=== PATIENT | male | born 1965 | race Caucasian/White ===

== ENCOUNTER → 2018-08-05 | Outpatient (CLI) | payer BC ==
[~2018-08-05] MED LIST: IOPAMIDOL 370 MG/ML 200 ML INFUS..BTL INJ ONE; SODIUM CHLORIDE 0.9% 50ML 50 ML ONE
[2018-08-05 14:50] LABS: BLOOD UREA NITROGEN 20 mg/dL (7-26); BUN/CREATININE RATIO 19 (6-25); CREATININE, SERUM 1.05 mg/dL (0.72-1.25); EST GLOMERULAR FILTRATION RATE > 60 ML/MIN (60-)
--- NOTE | 2018-08-05 15:39 | Diagnostic Imaging Report ---
EXAM: CT Chest WITH contrast (PE Protocol) INDICATION: ^SOB ON EXERTION/DIZZINESS/TACHCARDI COMPARISON: None TECHNIQUE: Chest was scanned utilizing a multidetector helical scanner from the lung apex through the level of the diaphragm after administration of IV contrast. Thin section reconstructions were obtained with special concentration on the pulmonary arteries. Coronal and sagittal reformations were obtained. Dose modulation, iterative reconstruction, and/or weight based adjustment of the mA/kV was utilized to reduce the radiation dose to as low as reasonably achievable. Pulmonary embolism protocol was performed. IV CONTRAST: 100 mL of Isovue-370 COMPLICATIONS: None RADIATION DOSE: Total DLP: 255.08 mGy*cm Estimated effective dose: (DLP x 0.014 x size factor) mSv CTDIvol has been reviewed. It is below the limits set by the Radiation Protocol Committee (RPC). FINDINGS: LINES/ TUBES: None. LUNGS AND AIRWAYS: No filling defect is identified within the pulmonary arteries to the segmental level. Bibasilar atelectasis/scarring. Airways are normal. PLEURA: The pleural spaces are clear. HEART AND MEDIASTINUM: The visualized thyroid gland is normal. No mediastinal, hilar or axillary lymphadenopathy. The heart is normal in size.. Trace pericardial fluid. . Main pulmonary artery measures 2.3 cm in diameter and the ascending aorta measures 3.3 cm. UPPER ABDOMEN: Unremarkable BONES: Left humeral head sclerotic focus, likely a bone island. SOFT TISSUES: Unremarkable. IMPRESSION: No pulmonary emboli. Signed by: Dr. Ady Hernandez MD on 08/05/2018 3:35 PM
== END ==
LOC: CT 13:35
PROVIDERS: ATTEND Family Medicine
DX: R06.02 Shortness of breath (principal); R42 Dizziness and giddiness; R00.0 Tachycardia, unspecified
CPT/HCPCS: 36415; 71260; 82565; 84520; Q9967